=== PATIENT | female | born 1965 | race Hispanic/Latino ===

== ENCOUNTER 2017-10-20 08:47 | Outpatient (CLI) | payer OTHER ==
--- NOTE | 2017-10-20 09:32 | XRay Report ---
Left ankle 3 views: History: Ankle and foot pain. Findings: Mild arthritic changes are noted at the talotibial joint and subtalar joint. Spur identified the posterior inferior aspect of calcaneum. No acute fracture. Impression: Mild arthritic changes as detailed above. More prominent on medial aspect of the ankle joint.
== END 2017-10-20 08:48 | disposition home or self-care (01) ==
LOC: SPVIMAG 08:47
PROVIDERS: ATTEND Physical Medicine & Rehabilitation
DX: M19.072 Primary osteoarthritis, left ankle and foot (principal)

== ENCOUNTER 2019-08-09 14:54 | Outpatient (CLI) | payer OTHER ==
--- NOTE | 2019-08-09 17:03 | XRay Report ---
CHEST 2 VIEWS INDICATION / CLINICAL INFORMATION: PRE-OP EVALUATION. COMPARISON: None available. FINDINGS: SUPPORT DEVICES: None. HEART / MEDIASTINUM: No significant abnormality. LUNGS / PLEURA: No significant pulmonary or pleural abnormality. No pneumothorax. ADDITIONAL FINDINGS: No significant additional findings. IMPRESSION: 1. No acute findings. Signer Name: Agustin Dos Santos MD Signed: 08/09/2019 4:58 PM Workstation Name: [id number]
== END 2019-08-09 14:55 | disposition home or self-care (01) ==
LOC: SPVIMAG 14:54
PROVIDERS: ATTEND Family Medicine
DX: Z01.818 Encounter for other preprocedural examination (principal)
CPT/HCPCS: 71046